=== PATIENT | female | born 1980 | race Caucasian/White ===

== ENCOUNTER 2020-09-30 11:22 | Emergency (ER) | payer BC ==
[~2020-09-30] VITALS: Ht 165.1 cm; Wt 81.6 kg
[2020-09-30 11:32] VITALS: BP 152/103
--- NOTE | 2020-09-30 11:37 | NUR ---
PT TAKEN TO BED 8.
[2020-09-30] MEDS: KETOROLAC 60 MG/2 ML VIAL IM ONE (12:34)
[2020-09-30 13:10] VITALS: BP 138/89
== END 2020-09-30 13:12 | disposition home or self-care (01) ==
LOC: MED 11:22
DX: R07.9 Chest pain, unspecified (principal); Z20.828 Contact with and (suspected) exposure to other viral communicable diseases
CPT/HCPCS: 71045; 93005; 96372; 99285; J1885; U0003